=== PATIENT | female | born 1935 | race African-American/Black ===

== ENCOUNTER 2019-03-14 09:17 | Emergency (ER) | payer MEDICARE, MEDICAID ==
[~2019-03-14] VITALS: Ht 162.6 cm; Wt 78.0 kg
[2019-03-14] MEDS ORDERED: ACETAMINOPHEN 325MG TABLET PO ONE (10:15)
[2019-03-14 13:05] VITALS: BP 139/70
[2019-03-14] MEDS ORDERED: IBUPROFEN 600MG TABLET PO ONE (13:15)
== END 2019-03-14 15:35 | disposition home or self-care (01) ==
LOC: ER 09:17
DX: M79.671 Pain in right foot (principal); I10 Essential (primary) hypertension
CPT/HCPCS: 73600; 73620; 99283